=== PATIENT | male | born 1980 | race Caucasian/White ===

== ENCOUNTER 2019-04-27 12:41 | Inpatient (IN) | payer MEDICARE, MEDICAID ==
[~2019-04-27] VITALS: Ht 180.3 cm; Wt 88.5 kg
[~2019-04-27 12:41] MED LIST: BENZ1TAB10 PO; CITA-106 PO; PROPANOLOL PO; QUET100T PO; RISP2 PO; TRAZ-252 PO; ZOLP10TA7 PO
[2019-04-27 13:46] LABS: BASOPHILS % (AUTO) 0.2 % (0.0-2.0); EOSINOPHILS % (AUTO) 1.1 % (1.0-6.0); HEMATOCRIT 37.4 % (41-53); HEMOGLOBIN 13.1 g/dL (13.5-17.5); LYMPHOCYTES # (AUTO) 1.3 K/uL (1.0-4.8); MEAN CORPUSCULAR HEMOGLOBIN 32.4 pg (26.0-34.0); MEAN CORPUSCULAR VOLUME 93 fL (80-100); MONOCYTES # (AUTO) 0.5 K/uL (0.1-1.0); MONOCYTES % (AUTO) 6.2 % (2.0-9.0); NEUTROPHILS # (AUTO) 6.4 K/uL (1.8-7.7); NEUTROPHILS % (AUTO) 76.5 % (40.0-70.0); PLATELET COUNT (AUTO) 315 K/uL (150-450); RED BLOOD CELL COUNT(AUTO) 4.04 MIL/uL (4.50-5.90)
[2019-04-27 13:53] LABS: ANION GAP 11 mmol/L (8-16); CALCIUM, TOTAL 8.5 mg/dL (8.8-10.5); CARBON DIOXIDE 29 mmol/L (22-29); CHLORIDE 103 mmol/L (98-107); CREATININE 0.79 mg/dL (0.60-1.30); GLOMERULAR FILTR. RATE CALC > 60 mL/min (>60); GLUCOSE,RANDOM 118 mg/dL (70-110); SODIUM SERUM 143 mmol/L (136-145); UREA NITROGEN, BLOOD 10 mg/dL (7-18)
[2019-04-27 13:59] LABS: ALANINE AMINOTRANSFERASE 33 U/L (12-78); ALBUMIN 3.5 g/dL (3.4-5.0); ALKALINE PHOSPHATASE 58 U/L (46-116); ASPARTATE AMINOTRANSFERASE 20 U/L (15-37); BILIRUBIN,TOTAL 0.3 mg/dL (0.1-1.0); TOTAL PROTEIN, SERUM 6.9 g/dL (6.4-8.2)
[2019-04-27] MEDS ORDERED: OLANZapine 5 MG RAPDIS TABLET PO PRN (14:15)
[2019-04-27] MEDS ORDERED: LOPERAMIDE HCL 2 MG CAPSULE PO PRN (14:15)
[2019-04-27] MEDS ORDERED: MAGNESIUM HYDROXIDE SUSPENSION 30 ML UDCUP PO PRN (14:15)
[2019-04-27] MEDS ORDERED: HydrOXYzine PAMOATE 50 MG CAPSULE PO PRN (14:15)
[2019-04-27] MEDS ORDERED: ACETAMINOPHEN 325 MG TABLET PO PRN (14:15)
[2019-04-27] MEDS ORDERED: GuaiFENesin/D-METHORPHAN [SUGAR-FREE] 200-20MG/10 ML SYRUP UDCUP PO PRN (14:15)
[2019-04-27] MEDS ORDERED: PROMETHAZINE HCL 25 MG TABLET PO PRN (14:15)
[2019-04-27] MEDS ORDERED: MAG HYDROX/AL HYDROX/SIMETH ES 30 ML SUSPENSION UDCUP PO PRN (14:15)
[2019-04-27] MEDS ORDERED: TUBERCULIN, PURIFIED PROTEIN DERIVATIVE 5 TU/0.1 ML SYRINGE ID ONE (14:15)
[2019-04-27] MEDS: LORazepam 2 MG TABLET PO PRN (15:30)
[2019-04-27] MEDS: THIAMINE HCL 100 MG TABLET PO SCH (20:10)
[2019-04-27 20:43] VITALS: BP 129/89
[2019-04-27] MEDS ORDERED: OLANZapine 5 MG RAPDIS TABLET PO SCH (21:00)
[2019-04-27] MEDS ORDERED: INFLUENZA VIRUS VACCINE QVS 2019-20 (3YR+)/PF 60 MCG/0.5 ML SYRINGE IM ONE (22:15)
[2019-04-28] MEDS: LORazepam 2 MG TABLET PO PRN ×3 (05:01→19:25)
[2019-04-28 06:56] LABS: CHOL/HDL RATIO 4.3 (4.2-7.3); FREE T4 (FREE THYROXINE) 1.13 ng/dL (0.76-1.46); THYROID STIMULATING HORMONE 1.27 uIU/mL (0.36-3.74)
[2019-04-28] MEDS: MULTIVITAMINS WITH MINERALS, THERAPEUTIC TABLET PO SCH (08:05)
[2019-04-28] MEDS: FOLIC ACID 1 MG TABLET PO SCH (08:05)
[2019-04-28] MEDS: THIAMINE HCL 100 MG TABLET PO SCH ×2 (08:05→16:04)
[2019-04-28] MEDS: NALTREXONE HCL 50 MG TABLET PO SCH (10:30)
[2019-04-28 14:11] VITALS: BP 123/77
[2019-04-28 16:23] VITALS: BP 128/78
[2019-04-28] MEDS ORDERED: RisperiDONE 1 MG TABLET PO PRN (18:00)
[2019-04-28] MEDS: TraZODone HCL 100 MG TABLET PO SCH (20:05)
[2019-04-28] MEDS: RisperiDONE 2 MG TABLET PO SCH (20:05)
[2019-04-29] MEDS: ZOLPIDEM TARTRATE 10 MG TABLET PO PRN ×2 (00:31→20:34)
[2019-04-29] MEDS: LORazepam 2 MG TABLET PO PRN ×3 (00:31→16:09)
[2019-04-29 00:32] VITALS: BP 127/80
[2019-04-29] MEDS: RisperiDONE 2 MG TABLET PO SCH ×2 (07:46→20:02)
[2019-04-29] MEDS: MULTIVITAMINS WITH MINERALS, THERAPEUTIC TABLET PO SCH (07:47)
[2019-04-29] MEDS: THIAMINE HCL 100 MG TABLET PO SCH ×2 (07:52→16:09)
[2019-04-29] MEDS: FOLIC ACID 1 MG TABLET PO SCH (07:52)
[2019-04-29] MEDS: NALTREXONE HCL 50 MG TABLET PO SCH (07:52)
[2019-04-29 08:21] VITALS: BP 136/86
[2019-04-29] MEDS: NICOTINE 21 MG/24 HOUR PATCH TD SCH (10:36)
[2019-04-29] MEDS ORDERED: RISP2 PO (12:49)
[2019-04-29] MEDS ORDERED: TRAZ-220 PO (12:49)
[2019-04-29] MEDS ORDERED: NALT50TA PO (12:49)
[2019-04-29 19:00] VITALS: BP 135/84
[2019-04-29] MEDS: TraZODone HCL 100 MG TABLET PO SCH (20:02)
[2019-04-30 01:55] VITALS: BP 125/85
[2019-04-30] MEDS: LORazepam 2 MG TABLET PO PRN (01:55)
[2019-04-30] MEDS: RisperiDONE 2 MG TABLET PO SCH (08:25)
[2019-04-30] MEDS: MULTIVITAMINS WITH MINERALS, THERAPEUTIC TABLET PO SCH (08:25)
[2019-04-30] MEDS: FOLIC ACID 1 MG TABLET PO SCH (08:25)
[2019-04-30] MEDS: NALTREXONE HCL 50 MG TABLET PO SCH (08:25)
[2019-04-30] MEDS: THIAMINE HCL 100 MG TABLET PO SCH (08:27)
[2019-04-30 08:29] VITALS: BP 144/95
[2019-04-30] MEDS: NICOTINE 21 MG/24 HOUR PATCH TD SCH (08:29)
== END 2019-04-30 15:15 | disposition home or self-care (01) | DRG 885 ==
LOC: EMS 12:43 → 3EC 17:18
PROVIDERS: ADMIT Psychiatry & Neurology Psychiatry; ATTEND Psychiatry & Neurology Psychiatry
DX: F20.0 Paranoid schizophrenia (principal); R45.850 Homicidal ideations; F17.210 Nicotine dependence, cigarettes, uncomplicated; D64.9 Anemia, unspecified; R73.03 Prediabetes; K59.00 Constipation, unspecified; R32 Unspecified urinary incontinence; Z91.14 Patient's other noncompliance with medication regimen; Z81.8 Family history of other mental and behavioral disorders
CPT/HCPCS: 83036; 84439; 84443; 86592; 93005; G0480

== ENCOUNTER 2019-05-18 09:35 | Inpatient (IN) | payer MEDICARE, MEDICAID ==
[~2019-05-18] VITALS: Ht 175.3 cm; Wt 88.0 kg
[~2019-05-18 09:35] MED LIST changes: -BENZ1TAB10 PO; -CITA-106 PO; +NALT50TA PO; -PROPANOLOL PO; -QUET100T PO; +TRAZ-220 PO; -TRAZ-252 PO; -ZOLP10TA7 PO
[2019-05-18 10:31] LABS: BASOPHILS % (AUTO) 0.2 % (0.0-2.0); EOSINOPHILS % (AUTO) 1.1 % (1.0-6.0); HEMATOCRIT 43.1 % (41-53); HEMOGLOBIN 14.9 g/dL (13.5-17.5); LYMPHOCYTES # (AUTO) 2.2 K/uL (1.0-4.8); LYMPHOCYTES % (AUTO) 21.9 % (22.0-44.0); MEAN CORPUSCULAR HEMOGLOBIN 32.3 pg (26.0-34.0); MEAN CORPUSCULAR HGB CONC 34.5 G/dL (31.0-37.0); MEAN CORPUSCULAR VOLUME 94 fL (80-100); MONOCYTES # (AUTO) 0.7 K/uL (0.1-1.0); NEUTROPHILS # (AUTO) 7.1 K/uL (1.8-7.7); NEUTROPHILS % (AUTO) 69.8 % (40.0-70.0); PLATELET COUNT (AUTO) 281 K/uL (150-450); RED CELL DISTRIBUTION WIDTH 12.9 % (11.5-14.5)
[2019-05-18 10:39] LABS: ANION GAP 7 mmol/L (8-16); CALCIUM, TOTAL 9.4 mg/dL (8.8-10.5); CARBON DIOXIDE 27 mmol/L (22-29); CHLORIDE 102 mmol/L (98-107); CREATININE 0.79 mg/dL (0.60-1.30); GLOMERULAR FILTR. RATE CALC > 60 mL/min (>60); GLUCOSE,RANDOM 101 mg/dL (70-110); POTASSIUM 4.2 mmol/L (3.5-5.1); SODIUM SERUM 136 mmol/L (136-145); UREA NITROGEN, BLOOD 20 mg/dL (7-18)
[2019-05-18 10:45] LABS: ALANINE AMINOTRANSFERASE 27 U/L (12-78); ALBUMIN 4.1 g/dL (3.4-5.0); ALKALINE PHOSPHATASE 63 U/L (46-116); ASPARTATE AMINOTRANSFERASE 17 U/L (15-37); BILIRUBIN,TOTAL 0.3 mg/dL (0.1-1.0); TOTAL PROTEIN, SERUM 7.8 g/dL (6.4-8.2)
[2019-05-18] MEDS ORDERED: LOPERAMIDE HCL 2 MG CAPSULE PO PRN (11:00)
[2019-05-18] MEDS ORDERED: RisperiDONE 1 MG TABLET PO PRN (11:00)
[2019-05-18] MEDS ORDERED: GuaiFENesin/D-METHORPHAN [SUGAR-FREE] 200-20MG/10 ML SYRUP UDCUP PO PRN (11:00)
[2019-05-18] MEDS ORDERED: PROMETHAZINE HCL 25 MG TABLET PO PRN (11:00)
[2019-05-18] MEDS ORDERED: MAGNESIUM HYDROXIDE SUSPENSION 30 ML UDCUP PO PRN (11:00)
[2019-05-18] MEDS ORDERED: ACETAMINOPHEN 325 MG TABLET PO PRN (11:00)
[2019-05-18] MEDS ORDERED: MAG HYDROX/AL HYDROX/SIMETH ES 30 ML SUSPENSION UDCUP PO PRN (11:00)
[2019-05-18 13:25] VITALS: BP 129/89
[2019-05-18] MEDS ORDERED: INFLUENZA VIRUS VACCINE QVS 2019-20 (3YR+)/PF 60 MCG/0.5 ML SYRINGE IM ONE (13:30)
[2019-05-18] MEDS ORDERED: RisperiDONE 2 MG TABLET PO SCH (17:00)
[2019-05-18] MEDS: THIAMINE HCL 100 MG TABLET PO SCH (18:55)
[2019-05-18] MEDS ORDERED: TraZODone HCL 100 MG TABLET PO SCH (21:00)
[2019-05-18] MEDS ORDERED: QUEtiapine FUMARATE 200 MG TABLET PO SCH (21:00)
[2019-05-19] MEDS: MULTIVITAMINS WITH MINERALS, THERAPEUTIC TABLET PO SCH (07:59)
[2019-05-19] MEDS: LORazepam 2 MG TABLET PO PRN (07:59)
[2019-05-19] MEDS: FOLIC ACID 1 MG TABLET PO SCH (07:59)
[2019-05-19] MEDS: QUEtiapine FUMARATE 100 MG TABLET PO PRN (07:59)
[2019-05-19] MEDS: HydrOXYzine PAMOATE 50 MG CAPSULE PO PRN (07:59)
[2019-05-19] MEDS: THIAMINE HCL 100 MG TABLET PO SCH ×2 (07:59→16:18)
[2019-05-19 08:21] VITALS: BP 103/79
[2019-05-19] MEDS ORDERED: BISACODYL 5 MG EC TABLET PO PRN (16:45)
[2019-05-19] MEDS ORDERED: QUEtiapine FUMARATE 200 MG TABLET PO SCH (21:00)
[2019-05-20] MEDS: ZOLPIDEM TARTRATE 10 MG TABLET PO PRN ×2 (00:24→20:28)
[2019-05-20] MEDS: LORazepam 2 MG TABLET PO PRN ×2 (00:24→08:41)
[2019-05-20 08:00] VITALS: BP 120/74
[2019-05-20] MEDS: MULTIVITAMINS WITH MINERALS, THERAPEUTIC TABLET PO SCH (08:41)
[2019-05-20] MEDS: FOLIC ACID 1 MG TABLET PO SCH (08:41)
[2019-05-20] MEDS: HydrOXYzine PAMOATE 50 MG CAPSULE PO PRN (08:41)
[2019-05-20] MEDS: QUEtiapine FUMARATE 100 MG TABLET PO PRN (08:41)
[2019-05-20] MEDS: THIAMINE HCL 100 MG TABLET PO SCH ×2 (08:41→17:11)
[2019-05-20 16:09] VITALS: BP 112/77
[2019-05-20] MEDS: QUEtiapine FUMARATE 300 MG TABLET PO SCH (20:12)
[2019-05-21] MEDS: LORazepam 2 MG TABLET PO PRN ×2 (02:25→08:21)
[2019-05-21] MEDS: QUEtiapine FUMARATE 100 MG TABLET PO PRN ×2 (02:25→08:21)
[2019-05-21] MEDS: MULTIVITAMINS WITH MINERALS, THERAPEUTIC TABLET PO SCH (08:21)
[2019-05-21] MEDS: HydrOXYzine PAMOATE 50 MG CAPSULE PO PRN (08:21)
[2019-05-21] MEDS: FOLIC ACID 1 MG TABLET PO SCH (08:21)
[2019-05-21] MEDS: THIAMINE HCL 100 MG TABLET PO SCH ×2 (08:21→17:03)
[2019-05-21 09:56] VITALS: BP 106/81
[2019-05-21] MEDS ORDERED: QUET300T18 PO (16:17)
[2019-05-21] MEDS ORDERED: NALT50TA PO (16:19)
[2019-05-21 16:56] VITALS: BP 126/80
[2019-05-21] MEDS: QUEtiapine FUMARATE 300 MG TABLET PO SCH (20:28)
[2019-05-22 08:07] VITALS: BP 115/83
[2019-05-22] MEDS: FOLIC ACID 1 MG TABLET PO SCH (08:24)
[2019-05-22] MEDS: LORazepam 2 MG TABLET PO PRN (08:24)
[2019-05-22] MEDS: MULTIVITAMINS WITH MINERALS, THERAPEUTIC TABLET PO SCH (08:25)
[2019-05-22] MEDS: QUEtiapine FUMARATE 100 MG TABLET PO PRN (08:25)
[2019-05-22] MEDS: THIAMINE HCL 100 MG TABLET PO SCH ×2 (08:25→16:04)
[2019-05-22 16:30] VITALS: BP 138/84
== END 2019-05-22 16:30 | disposition home or self-care (01) | DRG 885 ==
LOC: EMS 09:38 → 3EI 11:46 → 3EC 16:56
PROVIDERS: ADMIT Psychiatry & Neurology Psychiatry; ATTEND Psychiatry & Neurology Psychiatry
DX: F20.0 Paranoid schizophrenia (principal); D64.9 Anemia, unspecified; F17.210 Nicotine dependence, cigarettes, uncomplicated; F31.9 Bipolar disorder, unspecified; R79.89 Other specified abnormal findings of blood chemistry; R00.0 Tachycardia, unspecified; F94.0 Selective mutism; K59.00 Constipation, unspecified; Z81.8 Family history of other mental and behavioral disorders; Z91.19 Patient's noncompliance with other medical treatment and regimen; Z28.21 Immunization not carried out because of patient refusal; Z79.899 Other long term (current) drug therapy
CPT/HCPCS: 87081; G0480